=== PATIENT | female | born 1970 | race Caucasian/White ===

== ENCOUNTER 2020-03-08 17:03 | Emergency (ER) | payer BC, OTHER ==
[~2020-03-08] VITALS: Ht 165.1 cm; Wt 68.0 kg
[2020-03-08 17:06] VITALS: BP 114/57
[2020-03-08] MEDS ORDERED: AUGMENTIN 875-1 EACH PO (19:13)
[2020-03-08] MEDS ORDERED: MAGIC MOUTHWASH SWISH&SPIT (19:13)
[2020-03-08] MEDS ORDERED: BUTALB-APAP-CA1 EACH PO (19:13)
== END 2020-03-08 19:26 | disposition home or self-care (01) ==
LOC: ER 17:03
DX: H66.92 Otitis media, unspecified, left ear (principal); J02.9 Acute pharyngitis, unspecified; H92.01 Otalgia, right ear